=== PATIENT | female | born 1995 | race African-American/Black ===

== ENCOUNTER 2020-06-24 16:53 | Emergency (ER) | payer MEDICAID ==
[~2020-06-24] VITALS: Ht 149.9 cm; Wt 49.9 kg
[2020-06-24 17:03] VITALS: BP 132/80
--- NOTE | 2020-06-24 17:27 | Emergency Room Report ---
History of Present Illness General Chief Complaint: Skin Rash/Abscess Source: Patient Present Illness HPI 25 YO female presents to the ED C/O 06/10 in severity tenderness, erythema,and swelling to the right side of her head. She reports symptoms exacerbated quickly after she was squeezing it. Pt. denies drainage. Pt. denies fevers, chills or swollen tender lymph nodes. Denies lesions/rashes elsewhere on the b radha. Denies new medications or body washes or creams. Denies swelling of the lips, tongue , throat or airway. Denies wheezing, or shortness of breath. Denies recent travel, recent illness or ill contacts. 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 COVID-19 Screening: Negative COVID-19 COVID-19 Testing Source: nasal Patient History Past Medical History: see triage record Past Surgical History: none Pertinent Family History: none Now: No Reviewed Nursing Documentation: PMH: Agreed; PSxH: Agreed Nursing Documentation-PMH Past Medical History: No Stated History Review of Systems All Other Systems: negative except mentioned in HPI Physical Exam Vital Signs Date Time Temp Pulse Resp B/P (MAP) Pulse Ox O2 Delivery O2 Flow Rate FiO2 06/24/20 16:56 98.4 82 16 140/86 (104) 99 Room Air Sp02 EP Interpretation: reviewed, normal General Appearance: no apparent distress, alert, GCS 15, non-toxic Head: normocephalic, atraumatic Eyes: bilateral eye normal inspection, bilateral eye PERRL ENT: hearing grossly normal, normal voice Neck: full range of motion, no bony tend, other - Epidermoid Cyst of the Neck 1.5cm in diameter. Respiratory: lungs clear, normal breath sounds, speaking full sentences Cardiovascular #1: regular rate, rhythm Musculoskeletal: normal range of motion, gait/station normal, non-tender Neurologic: alert, motor strength/tone normal, oriented x3, sensory intact, responsive, speech normal Psychiatric: judgement/insight normal Skin: other - Epidermoid Cyst of the Neck 1.5cm in diameter. Lymphatic: no adenopathy Procedures Incision and Drainage Incision and Drainage : Consent: Verbal Blade Size: 11 I & D Procedure: betadine prep, sterile drapes applied, sterile dressing applied Wound Location: other - RIght Lateral Neck Wound's Depth, Shape: superficial Wound Length (cm): 1 Wound Explored: contaminated - purulent fluid expressed. Irrigated w/ Saline (ccs): 20 Anesthesia: Lidocaine w/ Epi Volume Anesthetic (ccs): 2 Splint Applied?: No Sling Applied?: No Patient Tolerated: Well Complications: None Medical Decision Making PA Attestation Dr. Arzate is my supervising Physician whom patient management has been discussed with. Diagnostic Impression: Primary Impression: Epidermal cyst of neck ER Course 25 YO female presents to the ED C/O 06/10 in severity tenderness, erythema,and swelling to the right side of her head. She reports symptoms exacerbated quickly after she was squeezing it. Pt. denies drainage. Pt. denies fevers, chills or swollen tender lymph nodes. Denies lesions/rashes elsewhere on the body. Denies new medications or body washes or creams. Denies swelling of the lips, tongue , throat or airway. Denies wheezing, or shortness of breath. Denies recent travel, recent illness or ill contacts. denies blisters, oral lesions, or sloughing of the skin Ddx considered but are not limited to cellulitis, abscess, cystic acne, necrotizing fasciitis, insect bite, epidermoid cyst. Vital signs: are WNL, pt. is afebrile H&PE are most consistent with Epidermoid Cyst of the Neck 1.5cm in diameter. ORDERS: none required at this time, the diagnosis is clinical ED INTERVENTIONS: - I & D d/w pt. that I & D is not definitive treatment, she will need the entire cyst removed to prevent recurrence. DISCHARGE: At this time pt. is stable for d/c to home. Will provide printed patient care instructions, and any necessary prescriptions. Care plan and follow up instructions have been discussed with the patient prior to discharge. Last Vital Signs Date Time Temp Pulse Resp B/P (MAP) Pulse Ox O2 Delivery O2 Flow Rate FiO2 06/24/20 17:03 98.4 87 17 132/80 98 Room Air Disposition: HOME, SELF-CARE Condition: Stable Scripts Acetaminophen With Codeine (T#3) (TYLENOL #3 TAB*) Y Tab 1 TAB ORAL Q8HR PRN for For Pain, #9 TAB Prov: Tereza Omer 06/24/20 Mupirocin* (MUPIROCIN*) 22 Gm Oint...g. 1 APPLIC TOPIC THREE TIMES A DAY, #22 GM Prov: Tereza Omer 06/24/20 Cephalexin* (KEFLEX*) 500 Mg Capsule 500 MG ORAL EVERY 12 HOURS for 7 Days, #14 CAP 0 Refills Prov: Tereza Omer 06/24/20 Patient Instructions: Epidermal Cyst Additional Instructions: Take medications as directed. Do not drink alcohol, drive, or operate heavy machinery while taking Tylenol # 3 as this may cause drowsiness. Do not squeeze at the cyst. Follow up with a [employer] SUPERVISOR for CYST REMOVAL in 3-5 days, Removal of the entire cyst is the definitive treatment. --Please contact your PMD's office for Dermatology referral Return sooner to ED if new symptoms occur, or current symptoms become worse. - Please note that this Emergency Department Report was dictated using [employer] man technology software, occasionally this can lead to erroneous entry secondary to interpretation by the dictation equipment. Tereza Omer Jun 24, 2020 17:27
[2020-06-24] MEDS ORDERED: ACETAMINOPHEN-1 EAC1 ORAL (17:28)
[2020-06-24] MEDS ORDERED: CEPHALEXIN500 MG ORAL (17:28)
[2020-06-24] MEDS ORDERED: MUPIROCIN22 GM TOPIC (17:28)
[2020-06-24 18:31] VITALS: BP 130/84
== END 2020-06-24 18:31 | disposition home or self-care (01) ==
LOC: EMR 17:20
DX: L72.0 Epidermal cyst (principal)
CPT/HCPCS: 10060; Z7502; 99283